=== PATIENT | female | born 2000 | race Caucasian/White ===

== ENCOUNTER 2024-05-04 17:45 | Emergency (ER) | payer MEDICAID ==
[~2024-05-04] VITALS: Ht 172.7 cm; Wt 81.8 kg
[2024-05-04 18:11] VITALS: TEMP 98.7
[2024-05-04 20:20] VITALS: BP 137/82; PULSE 86
== END 2024-05-04 20:20 | disposition home or self-care (01) ==
LOC: COL.ER 17:45
DX: S93.401A Sprain of unspecified ligament of right ankle, initial encounter (principal); X50.9XXA Other and unspecified overexertion or strenuous movements or postures, initial encounter